=== PATIENT | male | born 1955 | race Caucasian/White ===

== ENCOUNTER 2016-04-25 15:12 | Emergency (ER) | payer OTHER ==
[~2016-04-25] VITALS: Ht 180.3 cm; Wt 129.0 kg
[~2016-04-25 15:12] MED LIST: ALBU17I INH; GLIP5 PO; GLUCTAB PO; LORT5TAB PO; MELO15TA2 PO; PRIN10TA PO; ROBA750T3 PO
[2016-04-25 15:32] VITALS: BP 154/91; PULSE 94; RESP 16; TEMP 98.5; O2SAT 92
[2016-04-25] MEDS ORDERED: GLIP5TAB8 PO (16:44)
[2016-04-25] MEDS ORDERED: MELO-1 PO (16:44)
[2016-04-25] MEDS ORDERED: ALBU6.7H INH (16:44)
[2016-04-25] MEDS ORDERED: METF1000 PO (16:44)
[2016-04-25] MEDS ORDERED: LISI10TA3 PO (16:44)
[2016-04-25] MEDS ORDERED: WARF4TAB52 PO ×2 (16:44→16:45)
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
[2016-04-25] MEDS ORDERED: methylPREDNISolone SOD SUCC 125 MG/2 ML VIAL IV PUSH ONE (17:00)
[2016-04-25] MEDS ORDERED: RESP: ALBUTEROL 2.5 MG/IPRATROPIUM 0.5 MG NEB (SCH) NEB ONE (17:00)
[2016-04-25 17:12] LABS: AUTOMATED NEUTROPHIL # 6.2 TH/MM3 (1.8-7.7); BASOPHIL # 0.3 TH/MM3 (0-0.2); BASOPHIL % 3.2 % (0.0-2.0); EOSINOPHIL # 0.1 TH/MM3 (0-0.4); EOSINOPHIL % 1.2 % (0.0-4.0); HEMATOCRIT 44.6 % (39.0-51.0); HEMO FLAGS DIFF FINAL; LYMPH % 15.2 % (9.0-44.0); LYMPHOCYTE # 1.4 TH/MM3 (1.0-4.8); MEAN CELL VOLUME 85.7 FL (80.0-100.0); MEAN CORPUSCULAR HEMOGLOBIN 28.2 PG (27.0-34.0); MEAN CORPUSCULAR HGB CONC 32.9 % (32.0-36.0); MONO % 9.6 % (0.0-8.0); NEUT % 70.8 % (16.0-70.0); PLATELET COUNT 282 TH/MM3 (150-450); RED CELL DISTRIBUTION WIDTH 14.6 % (11.6-17.2); WHITE BLOOD COUNT 8.9 TH/MM3 (4.0-11.0)
[2016-04-25] MEDS ORDERED: predniSONE 20 MG TAB PO ONE (17:15)
[2016-04-25 17:24] LABS: POTASSIUM 5.7 MEQ/L (3.5-5.1)
[2016-04-25 17:26] LABS: BICARBONATE 29.5 MEQ/L (21.0-32.0)
--- NOTE | 2016-04-25 18:16 | RADHPO ---
EXAM DATE/TIME: 04/25/2016 17:39 [place] COMPARISON: No previous studies available for comparison. INDICATIONS : Shortness of breath, cough and congestion. MEDICAL HISTORY : Hypertension. Chronic obstructive pulmonary disease. SURGICAL HISTORY : None. ENCOUNTER: Initial ACUITY: 1 month PAIN SCORE: 0/10 LOCATION: Bilateral chest FINDINGS: PA and lateral views of the chest demonstrate the lungs to be symmetrically aerated without evidence of mass, infiltrate or effusion. The cardiomediastinal contours are unremarkable. Degenerative diaz ges are noted in the thoracic spine. CONCLUSION: No acute disease. Omar Guillaume MD FACR on April 25, 2016 at 18:14 Board Certified Radiologist. This report was verified electronically.
[2016-04-25] MEDS ORDERED: CEPH-460 PO (18:34)
[2016-04-25] MEDS ORDERED: PRED20 PO (18:34)
[2016-04-25 18:43] VITALS: BP 132/80
[2016-04-25] MEDS ORDERED: CEPHALEXIN MONOHYDRATE 500 MG CAP PO ONE (18:45)
== END 2016-04-25 19:03 | disposition home or self-care (01) ==
LOC: PHED 15:12
DX: E78.00 Pure hypercholesterolemia, unspecified (principal); J45.909 Unspecified asthma, uncomplicated; J32.0 Chronic maxillary sinusitis; I10 Essential (primary) hypertension; E11.9 Type 2 diabetes mellitus without complications; J44.9 Chronic obstructive pulmonary disease, unspecified
CPT/HCPCS: 71020; 80048; 85025; 87804; 94664; 99283; J7512

== ENCOUNTER 2017-11-19 09:33 | Inpatient (IN) ==
[2017-11-19] MEDS ORDERED: MethylPREDNISolone Sod Succinate Inj 125 MG/2 ML Vial IV.PUSH ONE (10:41)
--- NOTE | 2017-11-19 11:25 | XR ---
EXAM DATE: 11/19/2017 11:19 AM EDT AGE/SEX: 62 years / Male INDICATIONS: Cough and short of breath CLINICAL DATA: This is the patient's initial encounter. Patient reports that signs and symptoms have been present for 1 day and indicates a pain score of 0/10. MEDICAL/SURGICAL HISTORY: . Hypertension. Chronic obstructive pulmonary disease None. COMPARISON: HPO, CHEST PA & LAT, 04/25/2016. . FINDINGS: There is new patchy airspace disease in the right mid to lower lung zones. Cardiomediastinal contours are stable. Remainder of the exam is unchanged. CONCLUSION: 1. New patchy airspace disease in the right mid to lower lung zones concerning for pneumonia given c linical history. Recommend follow-up to resolution. Electronically signed by: Antonio Pérez MD 11/19/2017 11:23 AM EDT
--- NOTE | 2017-11-19 11:26 | ED ---
HPI General Chief Complaint: Respiratory Symptoms Stated Complaint: sob Time Seen by Provider: 11/19/17 10:26 Source: patient Mode of arrival: ambulatory Limitations: no limitations History of Present Illness Complaint: shortness of breath Onset (ago): day(s) (4) Context: other (resp infection) Severity: moderate Consistency/Duration: constant Relieving factors: other (Yani-[place] Plus) Exacerbating factors: exertion Known history of: asthma and other (AF) Associated symptoms: pain with inspiration, fever, cough, sputum production and other (sinus congestion) Treatment prior to arrival: other (cold medication) Related Data Home oxygen amount: none Home Medications Medication Instructions Recorded Confirmed insulin glargine [Lantus U-100 50 unit SUB-Q DAILY 11/19/17 11/19/17 Insulin] lisinopril 10 mg PO DAILY 11/19/17 11/19/17 metformin 1,000 mg PO BID 11/19/17 11/19/17 warfarin 5 mg PO QTUTHSA 11/19/17 11/19/17 Allergies Allergy/AdvReac Type Severity Reaction Status Date / Time penicillin G Allergy Severe NAUSEA Verified 11/19/17 09:37 Review of Systems ROS: all other systems reviewed are negative [facility] Medical History Medical History Atrial fibrillation (Acute) COPD (chronic obstructive pulmonary disease) (Acute) Diabetes (Acute) Surgical History Surgical History No history of previous surgery (Acute) Family History Family History Other Unknown family medical history Social History Social History Substance History: No History of Abuse Second Hand Smoke Exposure: No Smoking Status: Former smoker How Often Do You Have a Drink Containing Alcohol: Never Recent Travel in [facility] within the Last 8 Weeks: No Recent Out of Country Travel within the Last 8 Weeks: No Immunization History Tetanus Immunization: <5 Years Hx Influenza Vaccine This Season: No Exam Const General: cooperative, healthy appearing, comfortable and other (initial RA sats 89) Nutritional Appearance: obese Orientation: alert, awake and oriented x3 HENMT Head: normal to inspection, normocephalic and atraumatic Eyes Alignment and Position: alignment normal and position abnormal Conjunctivae: conjunctivae normal Sclera: sclerae normal Neck Neck: normal visual inspection and full ROM Chest Chest: normal inspection of the chest Resp Effort & Inspection: normal respiratory effort and cough Auscultation: bronchial breath sounds Cardio Rate: tachycardic Rhythm: abnormal rhythm Back/Spine/Pelvis Cervical Spine: cervical ROM normal Thoracic/Lumbar Spine: thoraco-lumbar ROM normal Skin General: no rashes or lesions noted and turgor normal Neuro General: alert, awake, oriented x3, moves all extremities and CN's II-XI intact bilaterally Extrem General: normal to inspection and full ROM Psych Appearance: grossly normal Mental Status: mental status grossly normal Speech and Movement: speech and movement normal Mood: congruent mood Affect: normal affect Attitude: cooperative Thought Process: normal Thought Content: normal Judgment: judgment good Course Consultations Consultation #1: Dr. Arnett Initial Documented Vital Signs Temperature 99.9 F H 11/19/17 09:38 Pulse Rate 106 H 11/19/17 09:38 Respiratory Rate 18 11/19/17 09:38 Blood Pressure 133/79 11/19/17 09:38 Pulse Oximetry 90 L 11/19/17 09:38 Last Documented Vital Signs Temperature 99.9 F H 11/19/17 09:38 Pulse Rate 100 H 11/19/17 13:23 Respiratory Rate 16 11/19/17 13:23 Blood Pressure 133/79 11/19/17 09:38 Pulse Oximetry 93 L 11/19/17 13:23 Medical Decision Making MDM Narrative Medical decision making narrative: A sputum culture has also been obtained.The patient with a history of chronic lung disease who is not on oxygen who presents with a four-day history of cold symptoms with difficulty breathing. He reports a cough productive of brown sputum and a subjective fever. On exam, his initial oxygen saturation on room air was 89%. He has bronchial breath sounds consistent with bronchospasm. He is being evaluated for possible pneumonia. In the meantime, he is being treated with nebulizer treatments and Solu-Medrol. Following his chest x-ray, Rocephin and Zithromax were ordered. A sputum culture has also been obtained. He is being admitted to the hospital for treatment of pneumonia. Differential Diagnosis Differential Diagnosis: Differential diagnosis of dyspnea includes but is not limited to congestive heart failure, pneumonia, wheezing, pneumothorax, pulmonary embolism Lab Data Result diagrams: 11/19/17 10:55 11/19/17 10:55 Lab Results 11/19/17 11/19/17 11/19/17 Range/Units 10:55 10:55 10:55 CBC w Diff Auto diff final WBC 4.7 (4.0-11.0) th/mm3 RBC 5.25 (4.50-5.90) mil/mm3 Hgb 15.0 (13.0-17.0) gm/dL Hct 45.9 (39.0-51.0) % MCV 87.4 (80.0-100.0) fL MCH 28.5 (27.0-34.0) pg MCHC 32.6 (32.0-36.0) % RDW 14.7 (11.6-17.2) % Plt Count 179 (150-450) th/mm3 MPV 8.2 (7.0-11.0) fL Neut % (Auto) 61.4 (16.0-70.0) % Lymph % (Auto) 20.1 (9.0-44.0) % [place] % (Auto) 16.5 H (0.0-8.0) % Eos % (Auto) 0.9 (0.0-4.0) % Baso % (Auto) 1.1 (0.0-2.0) % Neut # (Auto) 2.9 (1.8-7.7) th/mm3 Lymph # (Auto) 0.9 L (1.0-4.8) th/mm3 [place] # (Auto) 0.8 (0.0-0.9) th/mm3 Eos # (Auto) 0.0 (0.0-0.4) th/mm3 Baso # (Auto) 0.1 (0.0-0.2) th/mm3 WBC Differential . Differential Comment . PT 16.9 H (9.8-11.6) sec INR 1.7 Ratio Sodium 134 L (136-145) meq/L Potassium 3.8 (3.5-5.1) meq/L Chloride 95 L (98-107) meq/L Carbon Dioxide 28.6 (21.0-32.0) meq/L Anion Gap 10 (5-15) meq/L BUN 9 (7-18) mg/dL Creatinine 0.93 (0.60-1.30) mg/dL Estimated GFR 83 L (>89) mL/min Random Glucose 288 H (74-106) mg/dL Calcium 8.7 (8.5-10.1) mg/dL Total Bilirubin 0.6 (0.2-1.0) mg/dL AST 15 (15-37) U/L ALT 24 (12-78) U/L Alkaline Phosphatase 67 (45-117) U/L Troponin I Less than 0.02 L (0.02-0.05) ng/mL Total Protein 7.9 (6.4-8.2) g/dL Albumin 3.4 (3.4-5.0) g/dL Imaging Data Attestation: I personally reviewed and interpreted this imaging study as follows : My impression: He has an infiltrate in the right midlung field Radiologist's impression: Chest X-Ray 11/19/17 10:41 CONCLUSION: 1. New patchy airspace disease in the right mid to lower lung zones concerning for pneumonia given clinical history. Recommend follow-up to resolution. Discharge Plan Discharge Disposition Patient Disposition: 30 Still Patient Discharge Details Diagnosis: Pneumonia Physicians Team ED Provider: Sophia Negron Primary Care Provider: [facility] Attending Provider: Marjorie Arnett Status ED Status: Left Department Discharge Information Discharge Date/Time: 11/19/17 12:50
[2017-11-19 11:29] LABS: Baso # (Auto) 0.1 th/mm3 (0.0-0.2); Baso % (Auto) 1.1 % (0.0-2.0); Eos % (Auto) 0.9 % (0.0-4.0); Hematocrit 45.9 % (39.0-51.0); Lymph # (Auto) 0.9 th/mm3 (1.0-4.8); Lymph % (Auto) 20.1 % (9.0-44.0); Mean Corpuscular HGB Conc 32.6 % (32.0-36.0); Mean Corpuscular Hemoglobin 28.5 pg (27.0-34.0); Mean Corpuscular Volume 87.4 fL (80.0-100.0); Mean Platelet Volume 8.2 fL (7.0-11.0); Mono # (Auto) 0.8 th/mm3 (0.0-0.9); Mono % (Auto) 16.5 % (0.0-8.0); Neut # (Auto) 2.9 th/mm3 (1.8-7.7); Neut % (Auto) 61.4 % (16.0-70.0); Platelet Count 179 th/mm3 (150-450); Red Blood Count 5.25 mil/mm3 (4.50-5.90); Red Cell Distribution Width 14.7 % (11.6-17.2); White Blood Count 4.7 th/mm3 (4.0-11.0)
[2017-11-19 11:37] LABS: Chloride 95 meq/L (98-107); Potassium 3.8 meq/L (3.5-5.1); Sodium 134 meq/L (136-145)
[2017-11-19 11:40] LABS: INR 1.7 Ratio; Prothrombin Time 16.9 sec (9.8-11.6)
[2017-11-19 11:41] LABS: Calcium 8.7 mg/dL (8.5-10.1)
[2017-11-19 11:42] LABS: Albumin 3.4 g/dL (3.4-5.0); Anion Gap 10 meq/L (5-15); Blood Urea Nitrogen 9 mg/dL (7-18); Carbon Dioxide 28.6 meq/L (21.0-32.0); Glucose,Random 288 mg/dL (74-106)
[2017-11-19 11:44] LABS: Alanine Aminotransferase 24 U/L (12-78); Aspartate Aminotransferase 15 U/L (15-37)
[2017-11-19 11:45] LABS: Glomerular Filtration Rate 83 mL/min (>89)
[2017-11-19] MEDS ORDERED: Bisacodyl 10 MG Supp RECTAL PRN (11:45)
[2017-11-19] MEDS ORDERED: Temazepam 15 MG Capsule PO PRN (11:45)
[2017-11-19 11:46] LABS: Total Protein 7.9 g/dL (6.4-8.2)
[2017-11-19] MEDS ORDERED: Dextrose 50% in Water 50 ML Vial IV.PUSH PRN (11:48)
[2017-11-19 11:49] LABS: Alkaline Phosphatase 67 U/L (45-117)
[2017-11-19] MEDS ORDERED: Azithromycin Inj 500 MG in Sodium Chlor 0.9% Inj 250 ML IV.SIG ONE (11:55)
--- NOTE | 2017-11-19 13:23 | P.HPIM ---
History of Present Illness Primary Care Physician: [facility] Chief Complaint: Shortness of breath History of Present Illness: This patient is a pleasant 62-year-old gentleman with a history of COPD and atrial fibrillation comes in hospital with 4 days of increased work of breathing and shortness of breath and productive cough. He tried DayQuil, NyQuil and Yani-[place] plus at home with minimal relief. brought him into the hospital when he looked pale and worse. On arrival in the emergency room patient is 89% on room air. He does not have home O2 or nebulizer at home. Controlled he also has sleep apnea. He does admit having quit tobacco over 20 years ago with about a [id number] history of tobacco. Otherwise is in his usual state of health. - Diagnosis (1) COPD (chronic obstructive pulmonary disease) (2) Afib (3) DM2 (diabetes mellitus, type 2) (4) LYDIA (obstructive sleep apnea) Inpatient Certification: I certify that the inpatient services were ordered in accordance with Medicare regulations governing the order. This includes certification that hospital inpatient services are reasonable and necessary and in the case of services not specified as inpatient-only under 42 CFR 419.22(n), that they are appropriately provided as inpatient services in accordance to with the 2-midnight benchmark under 43 CFR 412.3(e) Estimated Total Length of Stay (Days): 3 Plans for Post Hospital Care: Not yet determined Review of Systems All other systems reviewed negative except as stated in HPI [facility] - History History Provided By: Patient - Medical History Medical History: Medical History (Last Reviewed 11/19/17 @ 13:13 by Marjorie Arnett MD) Atrial fibrillation COPD (chronic obstructive pulmonary disease) Diabetes - Surgical History Surgical History: Surgical History (Last Updated 11/19/17 @ 13:13 by Marjorie Arnett MD) No history of previous surgery - Family History Family History: Family History (Last Updated 11/19/17 @ 13:14 by Marjorie Arnett MD) Other Unknown family medical history - Tobacco History Second Hand Smoke Exposure: No Smoking Status: Former smoker - Alcohol History How Often Do You Have a Drink Containing Alcohol: Never - Substance Use History Substance History: No History of Abuse - Travel History Recent Travel in the [place] Within the Last 8 Weeks: No Recent Travel Out of the Country Within the Last 8 Weeks: No - Immunization History Tetanus Immunization: <5 Years Hx Influenza Vaccine This Season: No Medications and Allergies Active Medications: Active Medications Albuterol (Duoneb Neb (Prn)) 1 ampul NEB Q15M PRN PRN Reason: BRONCOSPASM Last Admin: 11/19/17 11:29 Dose: 1 ampul Albuterol (Duoneb Neb ([place])) 1 ampul NEB Q6HR WHILE AWAKE NEB ARLETH Bisacodyl (Dulcolax Supp) 10 mg RECTAL DAILY PRN PRN Reason: SEVERE CONSITIPATION Dextrose (D50w Vial) 50 ml IV.PUSH UNSCH PRN PRN Reason: PER HYPOGLYCEMIA PROTOCOL Enoxaparin Sodium (Lovenox Inj) 40 mg SQ Q24H ARLETH Glucagon (Glucagon Inj) 1 mg OTHER PRN PRN PRN Reason: for Hypoglycemia Protocol Levofloxacin/Dextrose (Levaquin 750 Mg Premix Inj) 150 mls @ 100 mls/hr IV.SIG Q24H ARLETH Lactated Ringer's (Lr 1000 Ml Inj) 1,000 mls @ 100 mls/hr IV.CONT .Q10H ARLETH Last Admin: 11/19/17 12:14 Dose: 100 mls/hr Insulin Aspart (Novolog Insulin Correctional Sugar Inj) 0 unit SQ ACHS AND 3AM ARLETH; Protocol Lactulose (Lactulose Liq) 30 ml PO DAILY PRN PRN Reason: SEVERE CONSITIPATION Methylprednisolone Sodium Succinate (Solumedrol Inj) 40 mg IV.PUSH Q8HR ARLE[place] Metoclopramide HCl (Reglan Inj) 5 mg IV.PUSH Q6HR PRN; Protocol PRN Reason: NAUSEA OR VOMITING Sodium Chloride (Ns Flush) 2 ml IV.FLUSH PRN PRN PRN Reason: FLUSH AFTER USING IV ACCESS Temazepam (Restoril) 15 mg PO HS PRN PRN Reason: INSOMNIA Allergies Allergy/AdvReac Type Severity Reaction Status Date / Time penicillin G Allergy Severe NAUSEA Verified 11/19/17 09:37 Home Medications Medication Instructions Recorded Confirmed Type insulin glargine [Lantus U-100 50 unit SUB-Q DAILY 11/19/17 11/19/17 History Insulin] lisinopril 10 mg PO DAILY 11/19/17 11/19/17 History metformin 1,000 mg PO BID 11/19/17 11/19/17 History warfarin 5 mg PO QTUTHSA 11/19/17 11/19/17 History Exam Vital signs: Vital Signs 11/19/17 09:38 11/19/17 09:55 11/19/17 11:14 Temperature 99.9 F H Pulse Rate 106 H 103 H Respiratory Rate 18 16 Blood Pressure 133/79 Pulse Oximetry 90 L 89 L 93 L 11/19/17 11:30 Temperature Pulse Rate 99 H Respiratory Rate 20 Blood Pressure Pulse Oximetry Intake & Output 11/18/17 11/19/17 11/19/17 18:59 06:59 18:59 Weight 155.5 kg Narrative: GENERAL: Well-nourished, well-developed patient. Short of breath SKIN: Warm and dry. With the lower extremity dusky changes of chronic venous stasis HEAD: Normocephalic. EYES: No scleral icterus. No injection or drainage. NECK: Supple, trachea midline. No JVD or lymphadenopathy. CARDIOVASCULAR: Atrial fibrillation with regular and rate without murmurs, gallops, or rubs. RESPIRATORY: Bilateral scattered wheezes decreased breath sounds in the bases GASTROINTESTINAL: Abdomen soft, non-tender, nondistended. MUSCULOSKELETAL: No cyanosis, and there is +2 edema bilateral lower extremity. BACK: Nontender without obvious deformity. No CVA tenderness. NEUROLOGICAL: Awake and alert. Cranial nerves II through XII intact. Motor and sensory grossly within normal limits. Five out of 5 muscle strength in all muscle groups. Normal speech. Results - Labs CBC & Chem 7: 11/19/17 10:55 11/19/17 10:55 Labs: Short CBC 11/19/17 Range/Units 10:55 WBC 4.7 (4.0-11.0) th/mm3 Hgb 15.0 (13.0-17.0) gm/dL Hct 45.9 (39.0-51.0) % Plt Count 179 (150-450) th/mm3 BMP 11/19/17 10:55 Sodium 134 L Potassium 3.8 Chloride 95 L Carbon Dioxide 28.6 BUN 9 Creatinine 0.93 Calcium 8.7 Cardiac Enzymes 11/19/17 Range/Units 10:55 Troponin I Less than 0.02 L (0.02-0.05) ng/mL Liver Function 11/19/17 Range/Units 10:55 Total Bilirubin 0.6 (0.2-1.0) mg/dL AST 15 (15-37) U/L ALT 24 (12-78) U/L Alkaline Phosphatase 67 (45-117) U/L Albumin 3.4 (3.4-5.0) g/dL - Imaging Impressions Chest X-Ray 11/19/17 10:41 CONCLUSION: 1. New patchy airspace disease in the right mid to lower lung zones concerning for pneumonia given clinical history. Recommend follow-up to resolution. Caprini VTE Risk Assessment Caprini VTE Risk Assessment: Moderate/High Risk (score >= 2) VTE Pharmacological Exception Reason: Coagulopathy,INR elevated Caprini Risk Assessment Model: Point Value = 1 Point Value = 2 Point Value = 3 Point Value = 5 Age 41-60 Minor surgery BMI > 25 kg/m2 Swollen legs Varicose veins or History of unexplained or recurrent spontaneous Oral contraceptives or hormone replacement Sepsis (< 1 month) Serious lung disease, including pneumonia (< 1 month) Abnormal pulmonary function Acute myocardial infarction Congestive heart failure (< 1 month) History of inflammatory bowel disease Medical patient at bed rest Age 61-74 Arthroscopic surgery Major open surgery (> 45 min) Laparoscopic surgery (> 45 min) Malignancy Confined to bed (> 72 hours) Immobilizing plaster cast Central venous access Age >= 75 History of VTE Family history of VTE Factor V Leiden Prothrombin [id number] Lupus anticoagulant Anticardiolipin antibodies Elevated serum homocysteine Heparin-induced thrombocytopenia Other congenital or acquired thrombophilia Stroke (< 1 month) Elective arthroplasty Hip, pelvis, or leg fracture Acute spinal cord injury (< 1 month) Prophylaxis Regimen: Total Risk Factor Score Risk Level Prophylaxis Regimen 0-1 Low Early ambulation 2 Moderate Order ONE of the following: *Sequential Compression Device (SCD) *Heparin 5000 units SQ BID 3-4 Higher Order ONE of the following medications: *Heparin 5000 units SQ TID *Enoxaparin/Lovenox 40 mg SQ daily (WT < 150 kg, CrCl > 30 mL/min) *Enoxaparin/Lovenox 30 mg SQ daily (WT < 150 kg, CrCl > 10-29 mL/min) *Enoxaparin/Lovenox 30 mg SQ BID (WT < 150 kg, CrCl > 30 mL/min) AND/OR *Sequential Compression Device (SCD) 5 or more Highest Order ONE of the following medications: *Heparin 5000 units SQ TID (Preferred with Epidurals) *Enoxaparin/Lovenox 40 mg SQ daily (WT < 150 kg, CrCl > 30 mL/min) *Enoxaparin/Lovenox 30 mg SQ daily (WT < 150 kg, CrCl > 10-29 mL/min) *Enoxaparin/Lovenox 30 mg SQ BID (WT < 150 kg, CrCl > 30 mL/min) AND *Sequential Compression Device (SCD) Assessment and Plan - Assessment (1) COPD (chronic obstructive pulmonary disease) Code(s): J44.9 - Chronic obstructive pulmonary disease, unspecified Status: Acute Plan: Patient with acute hypoxemic respiratory failure, improved on O2 Cont to treat Pneumonia Nebulized bronchodilators and IV steroids, (2) Afib Code(s): I48.91 - Unspecified atrial fibrillation Status: Acute Plan: Patient on warfarin Continue beta-amy, currently rate controlled (3) DM2 (diabetes mellitus, type 2) Code(s): E11.9 - Type 2 diabetes mellitus without complications Status: Acute Plan: Continue with insulin, Accu-Cheks and diabetic diet (4) LYDIA (obstructive sleep apnea) Code(s): G47.33 - Obstructive sleep apnea (adult) (pediatric) Status: Acute Plan: Continue with CPAP O2 as needed - Plan Code Status: Full code Discussed Condition With: Patient, ER
[2017-11-19] MEDS: Enoxaparin Inj 40 MG/0.4 ML Syringe SQ SCH (14:26)
[2017-11-19] MEDS: Insulin NovoLOG Aspart Correctional Sugar Inj SQ SCH ×3 (15:57→20:53)
[2017-11-19] MEDS: MethylPREDNISolone Sod Succinate Inj 40 MG/ML Vial IV.PUSH SCH ×2 (16:42→23:45)
[2017-11-20] MEDS: Insulin NovoLOG Aspart Correctional Sugar Inj SQ SCH ×5 (02:31→21:12)
[2017-11-20] MEDS: MethylPREDNISolone Sod Succinate Inj 40 MG/ML Vial IV.PUSH SCH ×3 (05:43→21:15)
[2017-11-20 06:08] LABS: Baso % (Auto) 0.9 % (0.0-2.0); Eos % (Auto) 0.1 % (0.0-4.0); Hematocrit 45.9 % (39.0-51.0); Hemoglobin 14.8 gm/dL (13.0-17.0); Lymph # (Auto) 0.6 th/mm3 (1.0-4.8); Lymph % (Auto) 16.9 % (9.0-44.0); Mean Corpuscular HGB Conc 32.2 % (32.0-36.0); Mean Corpuscular Hemoglobin 28.3 pg (27.0-34.0); Mean Corpuscular Volume 87.7 fL (80.0-100.0); Mean Platelet Volume 8.3 fL (7.0-11.0); Mono # (Auto) 0.4 th/mm3 (0.0-0.9); Mono % (Auto) 9.5 % (0.0-8.0); Neut # (Auto) 2.7 th/mm3 (1.8-7.7); Neut % (Auto) 72.6 % (16.0-70.0); Platelet Count 210 th/mm3 (150-450); Red Blood Count 5.23 mil/mm3 (4.50-5.90); Red Cell Distribution Width 15.2 % (11.6-17.2); White Blood Count 3.7 th/mm3 (4.0-11.0)
[2017-11-20 06:19] LABS: Chloride 99 meq/L (98-107); Potassium 4.1 meq/L (3.5-5.1); Sodium 135 meq/L (136-145)
[2017-11-20 06:21] LABS: Calcium 9.2 mg/dL (8.5-10.1); INR 1.6 Ratio; Prothrombin Time 16.1 sec (9.8-11.6)
[2017-11-20 06:22] LABS: Anion Gap 6 meq/L (5-15); Blood Urea Nitrogen 18 mg/dL (7-18); Carbon Dioxide 30.5 meq/L (21.0-32.0); Glucose,Random 286 mg/dL (74-106)
[2017-11-20 06:25] LABS: Glomerular Filtration Rate Greater Than 89 mL/min (>89)
[2017-11-20] MEDS: Lisinopril 10 MG Tablet PO SCH (08:28)
[2017-11-20] MEDS: Insulin Detemir Inj 1,000 UNIT/10 ML Vial SQ SCH (08:29)
[2017-11-20] MEDS: Enoxaparin Inj 40 MG/0.4 ML Syringe SQ SCH (11:34)
--- NOTE | 2017-11-20 13:35 | ECHRPT ---
Indication: SHORTNESS OF BREATH CONCLUSIONS Normal left ventricular size. Wall thickness is measured at the upper limits of normal. The left ventricular systolic function is hyperdynamic with an estimated ejection fraction in the ra nge of 65- 70%. No definite regional wall motion abnormalities. The aortic valve is not well visualized. No definite significant valvular abnormalities. BP: / HR: Rhythm: Sinus MEASUREMENTS (Male / Female) Normal Values Technical Quality:Fair 2D ECHO LV Diastolic Diameter PLAX 4.8 cm 4.2 - 5.9 / 3.9 - 5.3 cm LV Systolic Diameter PLAX 3.0 cm IVS Diastolic Thickness 1.5 cm 0.6 - 1.0 / 0.6 - 0.9 cm LVPW Diastolic Thickness 1.5 cm 0.6 - 1.0 / 0.6 - 0.9 cm LV Relative Wall Thickness 0.6 RV Internal Dim ED PLAX 2.9 cm LVOT Diameter 2.4 cm Aortic Root Diameter 3.6 cm LA Systolic Diameter LX 4.1 cm 3.0 - 4.0 / 2.7 - 3.8 cm M-MODE AV Cusp Separation MM 1.9 cm DOPPLER AV Peak Velocity 139.0 cm/s AV Peak Gradient 7.7 mmHg AV Mean Gradient 4.0 mmHg AV Velocity Time Integral 18.2 cm LVOT Peak Velocity 91.0 cm/s LVOT Peak Gradient 3.3 mmHg LVOT Velocity Time Integral 12.2 cm AV Area Cont Eq vti 3.0 cm AV Area Cont Eq pk 3.0 cm Mitral E Point Velocity 83.9 cm/s Mitral A Point Velocity 68.1 cm/s Mitral E to A Ratio 1.2 LV E' Lateral Velocity 8.9 cm/s Mitral E to LV E' Lateral Ratio 9.5 LV E' Septal Velocity 5.1 cm/s Mitral E to LV E' Septal Ratio 16.5 PV Peak Velocity 68.4 cm/s PV Peak Gradient 1.9 mmHg FINDINGS LEFT VENTRICLE Normal left ventricular size. Wall thickness is measured at the upper limits of normal. The left ventricular systolic function is hyperdynamic with an estimated ejection fraction in the ra nge of 65- 70%. No definite regional wall motion abnormalities. RIGHT VENTRICLE Normal right ventricular size and systolic function. LEFT ATRIUM The left atrial size is normal. RIGHT ATRIUM The right atrial size is normal. ATRIAL SEPTUM The interatrial septum not well visualized. AORTA The aortic root and proximal ascending aorta are normal in size on limited imaging. MITRAL VALVE No mitral valve regurgitation. AORTIC VALVE The aortic valve is not well visualized. TRICUSPID VALVE No tricuspid regurgitation. PULMONARY VALVE The pulmonary valve is not well visualized. VESSELS The inferior vena cava was not well visualized. PERICARDIUM Trace pericardial effusion. Dale Suresh MD (Electronically Signed) Final Date:20 November 2017 13:33
--- NOTE | 2017-11-20 13:45 | P.PNIM ---
Subjective Interval history: Patient reports that his chest still feels tight, asthmatic, difficulty taking a deep breath. He has a history of asthma since childhood but denies any significant amount of smoking, only smoked sporadically in his youth. 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 Physical Exam Vital signs: Vital Signs 11/19/17 16:00 11/19/17 19:32 11/19/17 20:33 Temperature 98.7 F 98 F Pulse Rate 102 H 106 H 106 H Respiratory Rate 18 20 20 Blood Pressure 147/76 H Pulse Oximetry 93 L 94 L 94 L 11/20/17 00:00 11/20/17 07:16 11/20/17 07:29 Temperature 98 F 96.1 F L Pulse Rate 105 H 89 86 Respiratory Rate 20 20 16 Blood Pressure 139/97 H 141/75 H Pulse Oximetry 93 L 94 L 92 L 11/20/17 08:00 11/20/17 11:10 Temperature 97.4 F L Pulse Rate 92 H Respiratory Rate 20 Blood Pressure 135/59 L Pulse Oximetry 92 L 94 L Intake & Output 11/19/17 11/20/17 11/20/17 18:59 06:59 18:59 Intake Total 800 / 800 1845 / 1845 1590 / 1590 Balance 800 / 800 1845 / 1845 1590 / 1590 Weight 129.8 kg 130 kg 130.5 kg Intake: IV 500 / 500 1000 / 1000 1590 / 1590 LR 1000 mL Inj 1,000 ML @ 100 1000 / 1000 1440 / 1440 mls/hr IV.CONT .Q10H YASIR Rx#: [id number] Azithromycin Inj 500 MG In NS 250 / 250 Inj 250 ML @ 250 mls/hr IV.SIG ONCE ONE Rx#:[id number] Levaquin 750 mg Premix Inj 150 150 / 150 150 / 150 ML @ 100 mls/hr IV.SIG Q24H YASIR Rx#:[id number] Rocephin Inj 2,000 MG In NS Inj 100 / 100 100 ML @ 200 mls/hr IV.SIG ONCE ONE Rx#:[id number] Oral 300 / 300 845 / 845 Other: # Voids 2 2 Date of Last Bowel Movement 11/18/17 11/19/17 # Bowel Movements 0 1 Weight On Admission 129.8 kg Narrative: GENERAL: AAOx3, no acute distress, obese SKIN: Warm and dry. No rashes HEAD: Atruamtic, normocephalic. EYES: No scleral icterus. No injection or drainage. ENT: Moist mucous membranes, patent nares, no erythema of oropharynx. NECK: Supple, trachea midline. No JVD or lymphadenopathy. Normal thyroid. CARDIOVASCULAR: Regular rate and rhythm. No murmurs, gallops, or rubs. RESPIRATORY: Crackles in left > right base. Scattered wheezing throughout lobes , moderate air exchange. No accessory muscle use. GASTROINTESTINAL: Abdomen soft, non-tender, nondistended, normal active bowel sounds MUSCULOSKELETAL: No cyanosis, or edema. NEURO: CN II-XII grossly intact, no focal deficits, no slurring of speech Results - Labs CBC & Chem 7: 11/20/17 04:57 11/20/17 04:57 Laboratory Results - last 24 hr 11/19/17 11/19/17 11/19/17 10:55 16:37 20:47 CBC w Diff WBC RBC Hgb Hct MCV MCH MCHC RDW Plt Count MPV Neut % (Auto) Lymph % (Auto) Spencer % (Auto) Eos % (Auto) Baso % (Auto) Neut # (Auto) Lymph # (Auto) Spencer # (Auto) Eos # (Auto) Baso # (Auto) WBC Differential Differential Comment PT INR Sodium Potassium Chloride Carbon Dioxide Anion Gap BUN Creatinine Estimated GFR POC Glucose 377 H 486 H* Random Glucose Calcium B-Natriuretic Peptide 12 11/20/17 11/20/17 11/20/17 02:24 04:57 04:57 CBC w Diff Auto diff final WBC 3.7 L RBC 5.23 Hgb 14.8 Hct 45.9 MCV 87.7 MCH 28.3 MCHC 32.2 RDW 15.2 Plt Count 210 MPV 8.3 Neut % (Auto) 72.6 H Lymph % (Auto) 16.9 Spencer % (Auto) 9.5 H Eos % (Auto) 0.1 Baso % (Auto) 0.9 Neut # (Auto) 2.7 Lymph # (Auto) 0.6 L Spencer # (Auto) 0.4 Eos # (Auto) 0.0 Baso # (Auto) 0.0 WBC Differential . Differential Comment . PT 16.1 H INR 1.6 Sodium Potassium Chloride Carbon Dioxide Anion Gap BUN Creatinine Estimated GFR POC Glucose 316 H Random Glucose Calcium B-Natriuretic Peptide 11/20/17 11/20/17 11/20/17 04:57 07:14 11:20 CBC w Diff WBC RBC Hgb Hct MCV MCH MCHC RDW Plt Count MPV Neut % (Auto) Lymph % (Auto) Spencer % (Auto) Eos % (Auto) Baso % (Auto) Neut # (Auto) Lymph # (Auto) Spencer # (Auto) Eos # (Auto) Baso # (Auto) WBC Differential Differential Comment PT INR Sodium 135 L Potassium 4.1 Chloride 99 Carbon Dioxide 30.5 Anion Gap 6 BUN 18 Creatinine 0.82 Estimated GFR Greater than 89 POC Glucose 304 H 326 H Random Glucose 286 H Calcium 9.2 B-Natriuretic Peptide Microbiology 11/19/17 10:55 Blood - Peripheral Aerobic Blood Culture - Preliminary No growth in 1 day 11/19/17 10:55 Blood - Peripheral Anaerobic Blood Culture - Preliminary No growth in 1 day 11/19/17 12:13 Sputum - Oral Tracheal Aspirate Gram Stain - Final Assessment and Plan - Assessment (1) COPD (chronic obstructive pulmonary disease) Code(s): J44.9 - Chronic obstructive pulmonary disease, unspecified Status: Acute Plan: Patient with acute hypoxemic respiratory failure, improved on O2 Cont to treat Pneumonia Nebulized bronchodilators and IV steroids, (2) Afib Code(s): I48.91 - Unspecified atrial fibrillation Status: Acute Plan: Patient on warfarin Continue beta-amy, currently rate controlled (3) DM2 (diabetes mellitus, type 2) Code(s): E11.9 - Type 2 diabetes mellitus without complications Status: Acute Plan: Continue with insulin, Accu-Cheks and diabetic diet (4) LYDIA (obstructive sleep apnea) Code(s): G47.33 - Obstructive sleep apnea (adult) (pediatric) Status: Acute Plan: Continue with CPAP O2 as needed - Plan Community-acquired pneumonia with reactive airway Chest x-ray shows right lower lobe pneumonia Continue with Levaquin IV Continue oxygen, duo nebs, Solu-Medrol Add budesonide nebulizers Follow clinically, plan for oxygen walk test prior to discharge Type 2 diabetes with hyperglycemia Hyperglycemia induced by steroid use and infection Patient was placed on long-acting insulin again Continue sliding-scale insulin with Accu-Cheks Continue diabetic diet Add back metformin h/o Atrial fibrillation Continue with patient's dose of warfarin and home dose beta-amy Currently rate controlled h/o obstructive sleep apnea Continue CPAP as needed Oxygen as needed DVT prophylaxis Warfarin
[2017-11-21] MEDS: Insulin NovoLOG Aspart Correctional Sugar Inj SQ SCH ×5 (03:41→21:52)
[2017-11-21] MEDS: MethylPREDNISolone Sod Succinate Inj 40 MG/ML Vial IV.PUSH SCH ×3 (06:30→21:41)
[2017-11-21] MEDS: Lisinopril 10 MG Tablet PO SCH (08:26)
[2017-11-21] MEDS: Insulin Detemir Inj 1,000 UNIT/10 ML Vial SQ SCH (08:26)
--- NOTE | 2017-11-21 10:47 | P.PNIM ---
Subjective Interval history: 8-year-old male with reactive airway secondary to pneumonia. Still wheezing overnight, still needing oxygen. He states he feels a little more strength compared to yesterday. Physical Exam Vital signs: Vital Signs 11/20/17 11:10 11/20/17 15:00 11/20/17 19:30 Temperature 97.4 F L 97.4 F L Pulse Rate 92 H 90 97 H Respiratory Rate 20 20 2 L Blood Pressure 135/59 L 132/62 Pulse Oximetry 94 L 94 L 93 L 11/20/17 20:00 11/21/17 00:00 11/21/17 07:13 Temperature 97.6 F 97.4 F L Pulse Rate 92 H 85 82 Respiratory Rate 18 18 16 Blood Pressure 124/64 127/94 H Pulse Oximetry 93 L 92 L 93 L 11/21/17 08:00 Temperature 96.4 F L Pulse Rate 86 Respiratory Rate 20 Blood Pressure 137/86 Pulse Oximetry 92 L Intake & Output 11/20/17 11/21/17 11/21/17 18:59 06:59 18:59 Intake Total 2430 / 2430 720 / 720 Balance 2430 / 2430 720 / 720 Weight 130.5 kg 130.6 kg Intake: IV 1590 / 1590 LR 1000 mL Inj 1,000 ML @ 100 1440 / 1440 mls/hr IV.CONT .Q10H YASIR Rx#: [id number] Levaquin 750 mg Premix Inj 150 150 / 150 ML @ 100 mls/hr IV.SIG Q24H YASIR Rx#:[id number] Oral 840 / 840 720 / 720 Other: # Voids 4 4 Date of Last Bowel Movement 11/19/17 # Bowel Movements 1 Narrative: GENERAL: AAOx3, no acute distress, obese SKIN: Warm and dry. No rashes HEAD: Atruamtic, normocephalic. EYES: No scleral icterus. No injection or drainage. ENT: Moist mucous membranes, patent nares, no erythema of oropharynx. NECK: Supple, trachea midline. No JVD or lymphadenopathy. Normal thyroid. CARDIOVASCULAR: Regular rate and rhythm. No murmurs, gallops, or rubs. RESPIRATORY: Crackles in bilateral bases. Scattered wheezing throughout lobes, moderate air exchange. No accessory muscle use. GASTROINTESTINAL: Abdomen soft, non-tender, nondistended, normal active bowel sounds MUSCULOSKELETAL: No cyanosis, or edema. NEURO: CN II-XII grossly intact, no focal deficits, no slurring of speech Results - Labs CBC & Chem 7: 11/20/17 04:57 11/20/17 04:57 Laboratory Results - last 24 hr 11/20/17 11/20/17 11/20/17 11:20 15:53 20:41 POC Glucose 326 H 376 H 404 H 11/21/17 11/21/17 03:36 07:16 POC Glucose 274 H 259 H Microbiology 11/19/17 12:13 Sputum - Oral Tracheal Aspirate Gram Stain - Final 11/19/17 12:13 Sputum - Oral Tracheal Aspirate Sputum Culture - Preliminary Heavy growth normal respiratory kody at 24 hours 11/19/17 10:55 Blood - Peripheral Aerobic Blood Culture - Preliminary No growth in 1 day 11/19/17 10:55 Blood - Peripheral Anaerobic Blood Culture - Preliminary No growth in 1 day Assessment and Plan - Assessment (1) COPD (chronic obstructive pulmonary disease) Code(s): J44.9 - Chronic obstructive pulmonary disease, unspecified Status: Acute Plan: Patient with acute hypoxemic respiratory failure, improved on O2 Cont to treat Pneumonia Nebulized bronchodilators and IV steroids, (2) Afib Code(s): I48.91 - Unspecified atrial fibrillation Status: Acute Plan: Patient on warfarin Continue beta-amy, currently rate controlled (3) DM2 (diabetes mellitus, type 2) Code(s): E11.9 - Type 2 diabetes mellitus without complications Status: Acute Plan: Continue with insulin, Accu-Cheks and diabetic diet (4) LYDIA (obstructive sleep apnea) Code(s): G47.33 - Obstructive sleep apnea (adult) (pediatric) Status: Acute Plan: Continue with CPAP O2 as needed - Plan Community-acquired pneumonia with reactive airway Chest x-ray shows right lower lobe pneumonia Continue with Levaquin IV Continue oxygen, duo nebs, Solu-Medrol, budesonide oxygen walk test tomorrow Add incentive spirometry Type 2 diabetes with hyperglycemia Hyperglycemia induced by steroid use and infection, improving Patient was placed on long-acting insulin again Continue sliding-scale insulin with Accu-Cheks Continue diabetic diet h/o Atrial fibrillation Continue with patient's dose of warfarin and home dose beta-amy Currently rate controlled, INR 1.6 last check, will recheck h/o obstructive sleep apnea Continue CPAP as needed Oxygen as needed DVT prophylaxis Warfarin
[2017-11-21] MEDS: levoFLOXacin 750 MG Tablet PO SCH (10:51)
[2017-11-22] MEDS: Insulin NovoLOG Aspart Correctional Sugar Inj SQ SCH ×5 (03:40→22:50)
[2017-11-22] MEDS: MethylPREDNISolone Sod Succinate Inj 40 MG/ML Vial IV.PUSH SCH ×3 (05:54→22:46)
[2017-11-22 06:50] LABS: Hematocrit 45.1 % (39.0-51.0); Hemoglobin 14.8 gm/dL (13.0-17.0); Mean Corpuscular HGB Conc 32.7 % (32.0-36.0); Mean Corpuscular Hemoglobin 28.8 pg (27.0-34.0); Mean Platelet Volume 8.1 fL (7.0-11.0); Platelet Count 242 th/mm3 (150-450); Red Blood Count 5.13 mil/mm3 (4.50-5.90); Red Cell Distribution Width 15.1 % (11.6-17.2); White Blood Count 10.3 th/mm3 (4.0-11.0)
[2017-11-22 06:57] LABS: Chloride 99 meq/L (98-107); Potassium 4.5 meq/L (3.5-5.1); Sodium 137 meq/L (136-145)
[2017-11-22 06:58] LABS: INR 1.4 Ratio; Prothrombin Time 14.6 sec (9.8-11.6)
[2017-11-22 07:00] LABS: Calcium 9.1 mg/dL (8.5-10.1)
[2017-11-22 07:01] LABS: Anion Gap 6 meq/L (5-15); Blood Urea Nitrogen 19 mg/dL (7-18); Carbon Dioxide 32.2 meq/L (21.0-32.0); Glucose,Random 255 mg/dL (74-106)
[2017-11-22 07:04] LABS: Glomerular Filtration Rate Greater Than 89 mL/min (>89)
[2017-11-22] MEDS: Lisinopril 10 MG Tablet PO SCH (09:19)
[2017-11-22] MEDS: Insulin Detemir Inj 1,000 UNIT/10 ML Vial SQ SCH (09:32)
[2017-11-22] MEDS: levoFLOXacin 750 MG Tablet PO SCH (10:48)
--- NOTE | 2017-11-22 11:37 | P.DS ---
Date of admission: 11/19/17 11:54 Primary care physician: [facility] Brief History from admission: This patient is a pleasant 62-year-old gentleman with a history of COPD and atrial fibrillation comes in hospital with 4 days of increased work of breathing and shortness of breath and productive cough. He tried DayQuil, NyQuil and [place] plus at home with minimal relief. brought him into the hospital when he looked pale and worse. On arrival in the emergency room patient is 89% on room air. He does not have home O2 or nebulizer at home. Controlled he also has sleep apnea. He does admit having quit tobacco over 20 years ago with about a [id number] history of tobacco. Otherwise is in his usual state of health. DS: Diagnosis - Discharge Diagnosis (1) COPD (chronic obstructive pulmonary disease) Status: Acute (2) Afib Status: Acute (3) DM2 (diabetes mellitus, type 2) Status: Acute (4) LYDIA (obstructive sleep apnea) Status: Acute DS: Medications - Discharge Medications Prescriptions: budesonide [Pulmicort] 0.5 mg NEB Q12HR NEB 15 Days #30 ml ipratropium-albuterol 1 amp NEB Q6HR WHILE AWAKE NEB PRN 30 Days #1 box PRN Reason: Wheezing levofloxacin 750 mg PO DAILY@1100 7 Days #7 tab methylprednisolone [Medrol ([place])] 4 mg PO PER PKG DIR 7 Days #1 pack DS: Summary Hospital Course: 62-year-old male with history of diabetes and asthma. He presented to the hospital 4 days ago with acute onset of dyspnea and cough. He was diagnosed with pneumonia in the right lower lobe. His recovery was slow with persistent wheezing and hypoxemia. Today the wheezing is cleared but his hypoxemia persist. Oxygen walk test he was 87% off of oxygen. 92% on oxygen. He will need oxygen on discharge but is stable as long as he has nebulizers and antibiotics. - Time Spent with Patient Total time spent providing and/or coordinating discharge services: Less than 30 minutes - Quality: VTE Deep Vein Thrombosis/Pulmonary Embolism Present on Admission: No Exam Vital signs: Vital Signs 11/21/17 12:00 11/21/17 13:31 11/21/17 17:08 Temperature 96 F L 97 F L Pulse Rate 85 88 87 Respiratory Rate 20 16 20 Blood Pressure 145/77 H 143/82 H Pulse Oximetry 93 L 93 L Pulse Oximetry [Exertion on Room Air] Pulse Oximetry [Exertion with Oxygen] Pulse Oximetry [Resting on Room Air] Pulse Oximetry [Resting with Oxygen] 11/21/17 19:00 11/21/17 19:12 11/21/17 20:00 Temperature 97.6 F Pulse Rate 84 92 H Respiratory Rate 18 20 Blood Pressure 127/88 Pulse Oximetry 92 L 94 L 92 L Pulse Oximetry [Exertion on Room Air] Pulse Oximetry [Exertion with Oxygen] Pulse Oximetry [Resting on Room Air] Pulse Oximetry [Resting with Oxygen] 11/21/17 20:15 11/22/17 00:00 11/22/17 08:00 Temperature 96.2 F L 96 F L Pulse Rate 85 96 H Respiratory Rate 20 20 Blood Pressure 135/84 137/76 Pulse Oximetry 95 95 92 L Pulse Oximetry [Exertion on Room Air] Pulse Oximetry [Exertion with Oxygen] Pulse Oximetry [Resting on Room Air] Pulse Oximetry [Resting with Oxygen] 11/22/17 08:09 11/22/17 08:46 Temperature Pulse Rate 86 Respiratory Rate 15 Blood Pressure Pulse Oximetry 93 L Pulse Oximetry [Exertion on Room Air] 87 L Pulse Oximetry [Exertion with Oxygen] 92 L Pulse Oximetry [Resting on Room Air] 90 L Pulse Oximetry [Resting with Oxygen] 95 Intake & Output 11/21/17 11/22/17 11/22/17 18:59 06:59 18:59 Intake Total 936 / 936 480 / 480 Balance 936 / 936 480 / 480 Weight 130.5 kg Intake: Oral 936 / 936 480 / 480 Other: # Voids 4 6 # Bowel Movements 0 1 Results Procedures completed during hospitalization: none Labs on day of discharge: Labs from last 24 hours 11/22/17 11/22/17 11/22/17 09:17 05:30 05:30 WBC RBC Hgb Hct MCV MCH MCHC RDW Plt Count MPV PT 14.6 H INR 1.4 Sodium 137 Potassium 4.5 Chloride 99 Carbon Dioxide 32.2 H Anion Gap 6 BUN 19 H Creatinine 0.84 Estimated GFR Greater than 89 POC Glucose 326 H Random Glucose 255 H Calcium 9.1 11/22/17 11/22/17 11/21/17 05:30 03:31 21:35 WBC 10.3 RBC 5.13 Hgb 14.8 Hct 45.1 MCV 88.0 MCH 28.8 MCHC 32.7 RDW 15.1 Plt Count 242 MPV 8.1 PT INR Sodium Potassium Chloride Carbon Dioxide Anion Gap BUN Creatinine Estimated GFR POC Glucose 261 H 328 H Random Glucose Calcium 11/21/17 16:40 WBC RBC Hgb Hct MCV MCH MCHC RDW Plt Count MPV PT INR Sodium Potassium Chloride Carbon Dioxide Anion Gap BUN Creatinine Estimated GFR POC Glucose 302 H Random Glucose Calcium Preliminary micro results at discharge 11/19/17 10:55 Aerobic Blood Culture - Preliminary Blood - Peripheral No growth in 3 days Anaerobic Blood Culture - Preliminary No growth in 3 days - Impressions ITS Impressions Chest X-Ray 11/19/17 10:41 CONCLUSION: 1. New patchy airspace disease in the right mid to lower lung zones concerning for pneumonia given clinical history. Recommend follow-up to resolution. Discharge Plan - Discharge Disposition Patient Disposition: 01 Discharge Home - Discharge Condition Condition: Fair - Discharge Order Discharge Orders: Discharge Order (Routine); Ordered 11/22/17 Ordered By: Collin Wesley - Physicians Team Primary Care Provider: [facility] [place] Attending Provider: Collin Wesley
[2017-11-23] MEDS: Insulin NovoLOG Aspart Correctional Sugar Inj SQ SCH ×3 (03:29→12:00)
[2017-11-23] MEDS: MethylPREDNISolone Sod Succinate Inj 40 MG/ML Vial IV.PUSH SCH (07:43)
[2017-11-23] MEDS: Lisinopril 10 MG Tablet PO SCH (08:36)
[2017-11-23] MEDS: Insulin Detemir Inj 1,000 UNIT/10 ML Vial SQ SCH (08:37)
[2017-11-23 09:41] VITALS: BP 129/76; PULSE 92; RESP 19; TEMP 96.7; O2SAT 93
[2017-11-23] MEDS: levoFLOXacin 750 MG Tablet PO SCH (11:40)
--- NOTE | 2017-11-23 13:00 | P.PNIM ---
Subjective Interval history: Patient is appropriate for discharge. He was discharged yesterday but there is a [facility] in [facility]. Physical Exam Vital signs: Vital Signs 11/22/17 13:57 11/22/17 16:00 11/22/17 19:26 Temperature 98.2 F Pulse Rate 75 93 H Respiratory Rate 15 20 Blood Pressure 147/81 H Pulse Oximetry 93 L 93 L 11/22/17 19:27 11/22/17 20:00 11/23/17 00:00 Temperature 97.5 F L 97.6 F Pulse Rate 84 93 H 85 Respiratory Rate 20 20 20 Blood Pressure 129/75 143/78 H Pulse Oximetry 94 L 96 11/23/17 07:26 11/23/17 08:00 11/23/17 08:36 Temperature 96.7 F L Pulse Rate 54 L 92 H Respiratory Rate 16 19 Blood Pressure 129/76 Pulse Oximetry 93 L 93 L Intake & Output 11/22/17 11/23/17 11/23/17 18:59 06:59 18:59 Intake Total 1180 / 1180 Balance 1180 / 1180 Intake: Oral 1180 / 1180 Other: # Voids 5 Narrative: GENERAL: AAOx3, no acute distress, obese SKIN: Warm and dry. No rashes HEAD: Atruamtic, normocephalic. EYES: No scleral icterus. No injection or drainage. ENT: Moist mucous membranes, patent nares, no erythema of oropharynx. NECK: Supple, trachea midline. No JVD or lymphadenopathy. Normal thyroid. CARDIOVASCULAR: Regular rate and rhythm. No murmurs, gallops, or rubs. RESPIRATORY: Crackles in bilateral bases. Scattered wheezing throughout lobes, moderate air exchange. No accessory muscle use. GASTROINTESTINAL: Abdomen soft, non-tender, nondistended, normal active bowel sounds MUSCULOSKELETAL: No cyanosis, or edema. NEURO: CN II-XII grossly intact, no focal deficits, no slurring of speech Results - Labs CBC & Chem 7: 11/22/17 05:30 11/22/17 05:30 Laboratory Results - last 24 hr 11/22/17 11/22/17 11/23/17 17:06 22:41 03:26 POC Glucose 238 H 283 H 260 H 11/23/17 11/23/17 07:41 11:43 POC Glucose 244 H 256 H Microbiology 11/19/17 10:55 Blood - Peripheral Aerobic Blood Culture - Preliminary No growth in 4 days 11/19/17 10:55 Blood - Peripheral Anaerobic Blood Culture - Preliminary No growth in 4 days - Procedures none Assessment and Plan - Assessment (1) COPD (chronic obstructive pulmonary disease) Code(s): J44.9 - Chronic obstructive pulmonary disease, unspecified Status: Acute Plan: Patient with acute hypoxemic respiratory failure, improved on O2 Cont to treat Pneumonia Nebulized bronchodilators and IV steroids, (2) Afib Code(s): I48.91 - Unspecified atrial fibrillation Status: Acute Plan: Patient on warfarin Continue beta-amy, currently rate controlled (3) DM2 (diabetes mellitus, type 2) Code(s): E11.9 - Type 2 diabetes mellitus without complications Status: Acute Plan: Continue with insulin, Accu-Cheks and diabetic diet (4) LYDIA (obstructive sleep apnea) Code(s): G47.33 - Obstructive sleep apnea (adult) (pediatric) Status: Acute Plan: Continue with CPAP O2 as needed - Plan Community-acquired pneumonia with reactive airway Chest x-ray shows right lower lobe pneumonia Continue p.o. Levaquin as outpatient for 10 days [facility] Duo nebs and budesonide nebs prescription on discharge Continue incentive spirometry at home Type 2 diabetes with hyperglycemia Continue sliding-scale insulin with Accu-Cheks Continue diabetic diet h/o Atrial fibrillation Continue with patient's dose of warfarin and home dose beta-amy Currently rate controlled, INR 1.6 last check, will recheck h/o obstructive sleep apnea Continue CPAP as needed Oxygen as needed DVT prophylaxis Warfarin
== END 2017-11-23 13:03 | disposition home or self-care (01) ==
LOC: PHED 09:33 → PHEDA 11:54 → PH3 13:11
PROVIDERS: ADMIT Family Medicine; ATTEND Family Medicine